=== PATIENT | female | born 1995 | race Caucasian/White ===

== ENCOUNTER 2019-07-23 18:53 | Emergency (ER) | payer BC ==
[2019-07-23 18:57] VITALS: BP 124/81; PULSE 80; TEMP 99.3; BMI 32.9
--- NOTE | 2019-07-23 21:18 | PDOC ---
*Physical Exam - Vital Signs Last Vital Signs Temp Pulse Resp BP Pulse Ox 99.3 F 80 19 124/81 98 07/23/19 18:55 07/23/19 18:55 07/23/19 18:55 07/23/19 18:55 07/23/19 18:55 Medical Decision Making - Medical Decision Making 07/23/19 21:17 Patient seen by the advanced practice provider under my direct supervision. Ancillary testing reviewed as necessary. I agree with plan as outlined by the advanced practice provider. Discharge - Discharge Information Problems reviewed: Yes Clinical Impression/Diagnosis: Costochondritis, acute Disposition: HOME - Additional Discharge Information Prescriptions: Ibuprofen [Ibu] 600 mg PO TID PRN #20 tablet PRN Reason: Pain - Follow up/Referral Referrals: Anand Jimenez [Primary Care Provider] - - Patient Discharge Instructions Patient Printed Discharge Instructions: DI for Chest Pain Additional Instructions: apply ice to the area take ibuprofen every 6 hours as needed for pain. - Post Discharge Activity Work/Back to School Note: Back to Work
[2019-07-23] MEDS ORDERED: KETOROLAC TROMETHAMINE 30 MG/1 ML VIAL IM ONE (21:25)
--- NOTE | 2019-07-23 21:25 | PDOC ---
History of Present Illness - General Chief Complaint: Chest Pain Stated Complaint: CHEST PAIN,SHOULDER, BACK PAIN Time Seen by Provider: 07/23/19 21:14 History Source: Patient - History of Present Illness Initial Comments: 23-year-old female complaining of right-sided chest pain radiating to the right shoulder and right arm. Patient denies injury or trauma to the area. Denies heavy lifting, exercising. Denies past medical history. Past History - Past Medical History Allergies/Adverse Reactions: Allergies Allergy/AdvReac Type Severity Reaction Status Date / Time No Known Allergies Allergy Verified 07/23/19 18:57 Home Medications: Ambulatory Orders Ibuprofen [Ibu] 600 mg PO TID PRN #20 tablet 07/23/19 COPD: No - Psycho Social/Smoking Cessation Hx Smoking History: Never smoked Information on smoking cessation initiated: No Hx Alcohol Use: No Drug/Substance Use Hx: No Review of Systems - Review of Systems Able to Perform ROS?: Yes Is the patient limited Romansh proficient: No Cardiac (ROS): Yes: Chest Pain. No: Symptoms Reported, See HPI, Edema, Irregular Heart Rate, Lightheadedness, Palpitations, Syncope, Chest Tightness, Other *Physical Exam - Vital Signs Last Vital Signs Temp Pulse Resp BP Pulse Ox 99.3 F 80 19 124/81 98 07/23/19 18:55 07/23/19 18:55 07/23/19 18:55 07/23/19 18:55 07/23/19 18:55 - Physical Exam General Appearance: Yes: Appropriately Dressed Respiratory/Chest: positive: Chest Tender (Right-sided intercostal tenderness on exam), Lungs Clear, Normal Breath Sounds Cardiovascular: positive: Regular Rhythm, Regular Rate Extremity: positive: Normal Capillary Refill, Normal Inspection, Normal Range of Motion Integumentary: positive: Normal Color, Dry, Warm Neurologic: positive: Fully Oriented, Alert ED Treatment Course - ADDITIONAL ORDERS Additional order review: Laboratory Results 07/23/19 21:40 Urine HCG, Qual Negative - RADIOLOGY Radiology Studies Ordered: Category Date Time Status CHEST PA & LAT [RAD] Stat Radiology 07/23/19 21:26 Taken - Medications Given in the ED: ED Medications Discontinued Medications Generic Name Dose Route Start Last Admin Trade Name Freq PRN Reason Stop Dose Admin Ketorolac Tromethamine 30 mg 07/23/19 21:25 07/23/19 22:20 Toradol Injection - IM 07/23/19 21:26 30 mg ONCE ONE Administration Medical Decision Making - Medical Decision Making A: musculoskeletal chest pain P: EKG CHest xray benny 07/23/19 21:55 PERC 0 Wells score 0 07/23/19 23:12 EKG: Chest xray Toradol Discharge - Discharge Information Problems reviewed: Yes Clinical Impression/Diagnosis: Costochondritis, acute Disposition: HOME - Additional Discharge Information Prescriptions: Ibuprofen [Ibu] 600 mg PO TID PRN #20 tablet PRN Reason: Pain - Follow up/Referral Referrals: Anand Jimenez [Primary Care Provider] - - Patient Discharge Instructions Patient Printed Discharge Instructions: DI for Chest Pain Additional Instructions: apply ice to the area take ibuprofen every 6 hours as needed for pain. - Post Discharge Activity Work/Back to School Note: Back to Work
[2019-07-23] MEDS ORDERED: KETOROLAC TROMETHAMINE 30 MG/1 ML VIAL ONE (21:54)
--- NOTE | 2019-07-24 12:06 | EKG ---
Test Reason : Blood Pressure : / mmHG Vent. Rate : 070 BPM Atrial Rate : 070 BPM P-R Int : 148 ms QRS Dur : 082 ms QT Int : 376 ms P-R-T Axes : 030 058 025 degrees QTc Int : 406 ms NORMAL SINUS RHYTHM NORMAL ECG NO PREVIOUS ECGS AVAILABLE Confirmed by Christiano Miller ([id number]) on 07/24/2019 12:05:42 PM Referred By: Confirmed By:Christiano Miller
== END 2019-07-23 23:55 | disposition home or self-care (01) ==
LOC: JER 18:53
PROC: 3E0233Z Introduction of Anti-inflammatory into Muscle, Percutaneous Approach (ICD-10-PCS; principal; 2019-07-23)
DX: M94.0 Chondrocostal junction syndrome [Tietze] (principal)
CPT/HCPCS: 71046-TC-FY; 84703; 93005; 93010; 99282-25